=== PATIENT | male | born 1985 | race Caucasian/White ===

== ENCOUNTER 2022-11-13 07:01 | Outpatient (REF) | payer BC, SELFPAY ==
[2022-11-13 07:34] LABS: Hematocrit 43.8 % (42.0-52.0); Hemoglobin 15.8 g/dl (14.0-18.0); Mean Corpuscular HGB Conc 36.1 g/dl (31.0-36.0); Mean Corpuscular Hemoglobin 32.7 pg (27.0-33.0); Mean Corpuscular Volume 90.7 fL (80.0-98.0); Mean Platelet Volume 10.6 fL (9.4-12.4); Platelet Count 206 X10*3/uL (160-400); Red Blood Count 4.83 X10*6/uL (4.60-5.80); White Blood Count 6.6 X10*3/uL (4.8-10.8)
[2022-11-13 08:03] LABS: Alanine Aminotransferase 30 U/L (0-40); Albumin Level 4.6 g/dL (3.5-5.0); Alkaline Phosphatase 79 U/L (39-117); Anion Gap 12 (12-20); Aspartate Amino Transferase 27 U/L (5-37); Bilirubin Total 0.7 mg/dL (0.0-1.0); Blood Urea Nitrogen 10 mg/dL (9-16); Calcium 9.2 mg/dL (8.4-10.2); Carbon Dioxide 27 mmol/L (22-29); Chloride 107 mmol/L (96-108); Cholesterol 135 mg/dL; Estimated Glomerular Filt Rate > 60; Glucose Fasting 88 mg/dL (60-99); HDL Cholesterol 31 mg/dL; LDL Cholesterol Calculated 69 mg/dl; Potassium 4.3 mmol/L (3.3-5.1); Sodium 142 mmol/L (135-145); Total Protein 6.7 g/dL (6.5-8.0); Triglycerides 176 mg/dL
[2022-11-13 08:36] LABS: Folate 14.3 ng/mL (> or = 4.0); TSH reflex Free T4 1.43 uIU/mL (0.32-4.0); Vitamin B12 721 pg/mL (200-900)
== END 2022-11-13 07:02 | disposition home or self-care (01) ==
LOC: HO.LAB 07:01
PROVIDERS: PCP Physician Assistant; Visit Provider Physician Assistant
DX: E53.8 Deficiency of other specified B group vitamins (principal); Z13.1 Encounter for screening for diabetes mellitus; Z13.220 Encounter for screening for lipoid disorders; Z13.29 Encounter for screening for other suspected endocrine disorder; Z78.9 Other specified health status; E66.9 Obesity, unspecified
CPT/HCPCS: 36415; 80053; 80061; 82607; 82746; 84443; 85027

== ENCOUNTER 2023-04-22 07:33 | Outpatient (REF) | payer BC, SELFPAY ==
[2023-04-22 08:17] LABS: Alanine Aminotransferase 26 U/L (0-40); Albumin Level 4.5 g/dL (3.5-5.0); Alkaline Phosphatase 76 U/L (39-117); Anion Gap 13 (12-20); Aspartate Amino Transferase 25 U/L (5-37); Bilirubin Total 0.6 mg/dL (0.0-1.0); Blood Urea Nitrogen 8 mg/dL (9-16); Calcium 9.6 mg/dL (8.4-10.2); Carbon Dioxide 26 mmol/L (22-29); Chloride 109 mmol/L (96-108); Estimated Glomerular Filt Rate > 60; Glucose Fasting 95 mg/dL (60-99); Sodium 144 mmol/L (135-145); Total Protein 6.8 g/dL (6.5-8.0)
[2023-04-22 08:53] LABS: Vitamin B12 702 pg/mL (200-900)
== END 2023-04-22 07:34 | disposition home or self-care (01) ==
LOC: HO.LAB 07:33
PROVIDERS: PCP Physician Assistant; Visit Provider Physician Assistant
DX: Z13.1 Encounter for screening for diabetes mellitus (principal); E53.8 Deficiency of other specified B group vitamins; Z78.9 Other specified health status
CPT/HCPCS: 36415; 80053; 82607; 82746

== ENCOUNTER 2023-04-28 15:39 | Outpatient (AMB) | payer BC, SELFPAY ==
[2023-04-28 15:45] VITALS: BP 110/64; PULSE 70; O2SAT 100; BMI 28.8
--- NOTE | 2023-04-28 15:45 | A.OFFPC_ITS ---
Vital Signs 04/28/23 15:45 Height 5 ft 9 in Weight 195 lb 6 oz BMI 28.8 BP 110/64 Blood Pressure Location Lt brachial Position Sitting Pulse 70 Pulse Source Pulse Oximeter Pulse Oximetry (%) 100 Oxygen Delivery Method Room Air Intake Visit Reasons: Annual exam Intake Note: Patient is here today for a physical. Night Clerk Required: No Accompanied by: Self / Same As Patient Allergies dairy Allergy (Mild, Uncoded 04/28/23 15:51) skin irritation Medication List - Last Reconciled 04/28/23 by All Suarez PA-C clotrimazole-betamethasone 1-0.05 % 1 appl topical BID 30 days loratadine (Claritin) 10 mg PO DAILY olopatadine 0.2% (Pataday Once Daily Relief) 1 drp ophthalmic (eye) BEDTIME 30 days semaglutide (Ozempic) mg subcut Tobacco use date assessed: 11/15/22 Dental Screening Dental Screen Date: 04/28/23 Did you have a dental visit in the last 12 months?: Yes Did you have a dental problem in the last 6 months where you did not have access to dental care?: No Was dental information given to patient?: Patient has dentist HPI Annual exam HPI Details Patient is a 37-year-old male here today for routine annual physical. Patient's past medical history significant for obesity, vegan diet. Has been started on Ozempic by online clinic and has found significant benefit with 10 lb weight loss. Has more energy and has been more physically active Concern--> has toenail fungus he would like to see a shell press operator about. Vaccines: Up-to-date with tetanus vaccine, UTD with COVID, gets FLu vaccine annually. Laboratory Tests 11/13/22 04/22/23 07:09 07:40 Creatinine 0.94 Vitamin B12 [id number] [facility] Medical History History of vitamin D deficiency Family History Maternal Grandfather Leukemia Mother Ovarian cancer Father Multiple sclerosis Social History (Updated 04/28/23 @ 15:56 by All Suarez PA-C) Housing: House Alcohol intake: current Alcohol intake frequency: a few times a week Alcohol type: beer Patient Tobacco Use Status: Never used Tobacco e-Cigarette/Vaping Use: Never Used service: No Current occupational status: employed Current occupation: Pharmacist - [employer] Cognitive needs: No Hearing needs: No Vision needs: Yes (has not seen an eye doctor over ten years) Questionnaire Thrive Questionnaire Date Thrive assessed: 01/31/22 REYES-7 AMB Questionnaire REYES-7 Date REYES - 7 assessed: 11/15/22 Source: Developed by Drs. Jesus Butterfield, Swapna William, Steven Lew and colleagues, with an educational fanta from [employer]. Review of Systems Const Denies body aches, Denies chills, Denies excessive sweating, Denies fatigue, Denies fever(s) and Denies headache(s) Eyes Denies blurry vision ENT Denies dysphagia, Denies vertigo, Denies dizziness, Denies headache(s), Denies hearing loss and Denies tinnitus Card Denies chest pain, Denies chest pain with activity, Denies syncope, Denies ir regular heart rhythm and Denies dyspnea Resp Denies chest congestion, Denies cough, Denies hemoptysis, Denies dyspnea and Denies wheezing GI Denies abdominal pain, Denies melena, Denies hematochezia, Denies coffee ground emesis, Denies dysphagia, Denies diarrhea, Denies nausea and Denies vomiting Denies difficulty urinating, Denies dysuria, Denies urinary frequency, Denies urinary hesitancy and Denies urinary urgency Musc Denies arthralgias, Denies limited range of motion, Denies muscle cramps and Denies muscle weakness Skin/Breast Denies rash and Denies skin ulcer Neuro Denies Abnormal speech present, Denies confusion, Denies vertigo, Denies dizziness, Denies syncope, Denies headache(s), Denies memory loss and Denies seizure-like activity Psych Denies anxiety, Denies confusion, Denies depression, Denies memory loss, Denies panic attacks and Denies paranoia Endo Denies excessive sweating, Denies fatigue, Denies flushing, Denies polydipsia and Denies polyuria Aller/Immun Denies wheezing Physical exam (Primary Care) Vital Signs: Last Vital Signs Pulse 70 04/28/23 15:45 BP 110/64 04/28/23 15:45 Pulse Ox 100 04/28/23 15:45 Oxygen Delivery Method Room Air 04/28/23 15:45 BMI result Body Mass Index 28.8 Tobacco/Smoking Status: Tobacco use Status Tobacco use date assessed 11/15/22 04/28/23 15:51 Patient Tobacco Use Status Never used Tobacco 04/28/23 15:56 Tobacco use type 05/24/22 16:23 e-Cigarette/Vaping Use Never Used 04/28/23 15:56 Thrive Assessment: Date of Thrive Assessment Date Thrive assessed 01/31/22 04/28/23 15:51 Const General: cooperative, comfortable, no acute distress, alert and awake; No confusion Orientation/consciousness: oriented to person, oriented to place, patient oriented x3 and No confusion HENMT Head: Yes normocephalic Ears: external ears normal and TM's normal bilaterally Face and sinus: No sinus tenderness Mouth: Normal oral and palatal mucosa present and tongue normal Teeth and gingiva: dentition normal and gingiva normal Throat: Yes posterior oropharynx normal, Yes tonsils normal and Yes uvula midline Eyes Conjunctivae: conjunctivae normal Sclerae: sclerae normal Pupils: Equal, round and reactive pupils present EOM: EOMs intact bilaterally Direct Ophthalmoscopy: No no photophobia Neck Neck: Yes no lymphadenopathy, No tender and Yes no JVD Thyroid: Thyroid normal Carotids: no bruits Chest Chest palpation & inspection: no tenderness Resp Effort & Inspection: normal respiratory effort, no audible wheezes, not labored and no stridor Auscultation: no crackles, no rales, no rhonchi and no wheezes Cardio Jugular venous distension: no JVD Rate: regular rate, not bradycardic and not tachycardic Rhythm: regular rhythm Bruits: no carotid bruits Peripheral pulses: Peripheral pulses 2+ throughout GI Inspection: Yes normal to inspection, No abdominal wall ecchymosis and No visible herniation Palpation (GI): Soft to palpation, nontender, no guarding, not rigid and No hepatosplenomegaly present Auscultation: normoactive bowel sounds General: Yes no CVA tenderness Back/Spine/Pelvis Back: no CVA tenderness and No back tenderness Cervical Spine: cervical ROM normal Thoracic/Lumbar Spine: thoracic and lumbar spine normal to inspection, straight leg raise negative bilaterally, No thoraco-lumbar ROM limited and No lumbar spinal tenderness Skin Lesions: no lesions Rashes: no rashes Wounds: no wounds Neuro General: oriented to person, oriented to place, patient oriented x3, CN's II-XI intact bilaterally and No confusion Cranial nerves: Yes Equal, round and reactive pupils present and Yes Normal accommodation reflex present Cognition (Neuro): normal cognition Speech: No Abnormal speech present Gait exam (Neuro): Normal gait present Motor exam (neuro): 5/5 motor strength present throughout Extrem Right upper extremity: full ROM; no cyanosis Left upper extremity: full ROM; no cyanosis Right lower extremity: no edema Left lower extremity: no edema Psych Appearance: grossly normal Mental Status: mental status grossly normal Affect: normal affect Attitude: cooperative Thought process: Normal thought process present Assessment and Plan Assessment & Plan (1) Annual physical exam: Code(s): Z00.00 - Encounter for general adult medical examination without abnormal findings (2) Toenail fungus: Code(s): B35.1 - Tinea unguium Plan: Has onychomycosis and would like to see a shell press operator nail grooming. (3) Vegan diet: Code(s): Z78.9 - Other specified health status Plan: Continues on strict being diet, B12 folate levels are normal. (4) Screening for diabetes mellitus (DM): Code(s): Z13.1 - Encounter for screening for diabetes mellitus (5) Overweight (BMI 25.0-29.9): Code(s): E66.3 - Overweight Plan: Patient has been started on Ozempic [facility] and has found significant benefit with his 10 lb weight loss. He reports his late night snacking is limited. Is now have more energy has been more physically active. He would like to continue 1 mg Ozempic for the time being Orders: Orders Comprehensive [place]. Panel Fast Today Z13.1 - Encounter for screening for diabetes mellitus Complete Blood Count no Diff Today Z78.9 - Other specified health status Vitamin B12 and Folate Today E53.8 - Deficiency of other specified B group vitamins, Z78.9 - Other specified health status Referrals Podiatry Referral B35.1 - Tinea unguium Medications: New semaglutide (Ozempic) 1 mg (0.75 mL) subcut QWEEK 3 mL 6RF 4 weeks E66.09 - Other obesity due to excess calories, Z68.31 - Body mass index [BMI] 31.0-31.9, adult Coding Level of Care Code Est Pt Prev Care [id number]([id number]) Diagnoses Annual physical exam Z00.00 Toenail fungus B35.1 Vegan diet Z78.9 Screening for diabetes mellitus (DM) Z13.1 Overweight (BMI 25.0-29.9) E66.3
== END 2023-04-28 16:07 | disposition home or self-care (01) ==
PROVIDERS: Visit Provider Physician Assistant
DX: Z00.00 Encounter for general adult medical examination without abnormal findings (principal); B35.1 Tinea unguium; Z78.9 Other specified health status; Z13.1 Encounter for screening for diabetes mellitus; E66.3 Overweight
CPT/HCPCS: 99395